=== PATIENT | female | born 1965 | race Caucasian/White ===

== ENCOUNTER 2017-07-23 00:50 | Observation (INO) | payer BC ==
[~2017-07-23] VITALS: Ht 152.4 cm; Wt 63.5 kg
--- NOTE | ~2017-07-23 | CT2 ---
[facility] A Service of [facility] RADIOLOGY TEXT RESULTS PATIENT: MECHELLE STEELE LOCATION: [place] [address] : [birth year] UNIT #: [id number] AGE: [address]: Cristobal Sam MD SEX: F ORDER DR: [id number] [place] [id number] [facility]. [place], [place] [address] [id number] I MR#: [id number] Acc #: [id number] NAME: MECHELLE STEELE : 1965 SEX: F STUDY DATE/TIME: 07/23/2017 4:11 UNIT: [facility] ROOM: [id number] STUDY DESCRIPTION: CT Abd and Pelv W Cont Attending Physician: Cristobal Sam M.D. Ordering Physician: Socrates Grace Aprn Primary Care Physician: No Primary Care Physician MEDICAL IMAGING REPORT This report is preliminary unless electronic signature is present EXAM CT abdomen and pelvis with IV contrast. HISTORY Midabdomen pain and nausea for [address] abdomen and pelvis was performed with IV contrast. This CT exam was performed with one or more of the following radiation dose reduction techniques: automatic exposure control, adjustment of mA and/or kV according to patient size, and iterative reconstruction. CT ABDOMEN There is borderline to mild gallbladder distension and mild gallbladder wall thickening and a small amount of fluid adjacent to the gallbladder. There are several small calcified gallstones, including an approximately 1 cm calcified stone in the gallbladder neck. Findings are concerning for cholecystitis. Fatty infiltration of the liver with focal normal liver adjacent to the gallbladder fossa. Moderately severe multifocal parenchymal scarring in the upper and lower poles of the right kidney and generalized right renal parenchymal atrophy. Borderline to mild splenic enlargement measuring close to 14 cm in maximal dimension. The pancreas and adrenal glands are unremarkable. Mild dilatation of the common bile duct measuring 9 mm. No intrahepatic biliary ductal dilatation. Normal caliber abdominal aorta. No bowel dilatation. No adenopathy or ascites. CT PELVIS Mild diverticulosis in the distal descending colon. The uterus and adnexa are unremarkable. No free fluid. Normal appendix. IMPRESSION [facility] A Service of [facility] RADIOLOGY TEXT RESULTS PATIENT: MECHELLE STEELE LOCATION: [place] [address] : [birth year] UNIT #: [id number] AGE: [address]: Cristobal Sam MD SEX: F ORDER DR: 1. Findings are concerning for acute cholecystitis with mild diffuse gallbladder wall thickening and adjacent small amount of fluid surrounding the gallbladder. There are multiple gallstones including an approximately 1 cm gallstone in the gallbladder neck. 2. Mild extrahepatic biliary ductal dilatation with the common bile duct measuring 9 mm. 3. Fatty infiltration of the liver with focal normal liver adjacent to the gallbladder fossa. 4. Mild splenic enlargement. 5. Moderately extensive multifocal parenchymal scarring in the right kidney and generalized right renal parenchymal atrophy. 6. Normal appendix. Dictated by... Ari Connolly M.D. THIS IS AN ELECTRONICALLY VERIFIED REPORT Ari Connolly M.D. at 07/24/2017 4:18 AM PATT/dmiitri TD: 07/23/2017 09:14 JOB #: [id number] MEDICAL IMAGING REPORT Page 1 of 1 COPY
--- NOTE | ~2017-07-23 | DS ---
Unit #: [id number] #: [id number] Patient: MECHELLE STEELE [id number] [address] [place], [place] [address] [id number] I MR#: [id number] NAME: MECHELLE STEELE ROOM: 461 Age: 51 Sex: F Admission Date: 07/23/2017 : 1965 Discharge Date: 07/25/2017 Attending Physician: Cristobal Sam M.D. Primary Care Physician: No Primary Care Physician DISCHARGE SUMMARY HISTORY AND HOSPITAL COURSE Ms. Steele is a 51-year-old female who had been ill with abdominal pain for several days. Came to the emergency room and was found to have acute cholecystitis. She was started on antibiotics, taken to the operating room where she had severe acute cholecystitis with surrounding phlegmon. She was able to have a laparoscopic cholecystectomy with intraoperative cholangiogram and placement of a drain. Postoperatively, she remained afebrile. Her laboratories normalized and she was able to ambulate independently and be started on a diet and advanced to a regular diet over 48 hours. Patient is doing well. Her drain was able to be removed. Patient is anxious to go home today as today is her mother's so we are going to allow her to be discharged today. We have asked her to continue to maintain hydration, eat as she is comfortable. She will be sent home on Augmentin to continue antibiotics because of the severity of her infection. However, she is afebrile and her white count is back to normal. She is tolerating oral pain medication and her pain seems to be well controlled. The patient and her understood these instructions. They are to call my office and follow up next week for a routine followup. She can undergo diet and activity as tolerated. She may shower and change her bandages as needed and she can use a laxative as needed. Patient understood these instructions, will be discharged home in stable condition. Dictated by... Harpreet Goodman M.D. Casey TD: 07/27/2017 15:32 JOB #: [id number] DISCHARGE SUMMARY Page 1 of 1 X Harpreet Goodman MD X DISCHARGE SUMMARY
--- NOTE | ~2017-07-23 | CR72 ---
[facility] A Service of [facility] & [facility] RADIOLOGY TEXT RESULTS PATIENT: MECHELLE STEELE LOCATION: [place] [address] : [birth year] UNIT #: [id number] AGE: [address]: Cristobal Sam MD SEX: F ORDER DR: [id number] [facility] [address]. [place], [place] [address] [id number] I MR#: [id number] Acc #: [id number] NAME: MECHELLE STEELE : 1965 SEX: F STUDY DATE/TIME: 07/23/2017 3:00 UNIT: [facility] ROOM: 1987[address] STUDY DESCRIPTION: CR Chest Single View Portable Attending Physician: Cristobal Sam M.D. Ordering Physician: Socrates Grace Aprn Primary Care Physician: Primary Care Physician No MEDICAL IMAGING REPORT This report is preliminary unless electronic signature is present COMPARISON Portable chest HISTORY Epigastric pain since yesterday. FINDINGS A single AP portable view of the chest shows both lungs to be clear. The heart is normal in size. The mediastinal contour is normal. No significant bone abnormalities are seen. IMPRESSION Normal portable chest. Dictated by... Ari Connolly M.D. THIS IS AN ELECTRONICALLY VERIFIED REPORT Ari Connolly M.D. at 07/24/2017 4:18 AM PATT/blanka TD: 07/23/2017 09:16 JOB #: [id number] MEDICAL IMAGING REPORT Page 1 of 1 COPY
--- NOTE | ~2017-07-23 | CR73 ---
[facility] A Service of [facility] & [facility] RADIOLOGY TEXT RESULTS PATIENT: MECHELLE STEELE LOCATION: [facility] 46-01 : [birth year] UNIT #: [id number] AGE: [address]: Cristobal Sam MD SEX: F ORDER DR: [id number] [facility] [address] [place], [place] [address] [id number] I MR#: [id number] Acc #: [id number] NAME: EMCHELLE STEELE : 1965 SEX: F STUDY DATE/TIME: 07/23/2017 12:08 UNIT: [facility] ROOM: [facility] STUDY DESCRIPTION: CR Cholangiogram Operative Attending Physician: Cristobal Sam M.D. Ordering Physician: Harpreet Goodman M.D. Primary Care Physician: Primary Care Physician No MEDICAL IMAGING REPORT This report is preliminary unless electronic signature is present EXAM Intraoperative cholangiogram INDICATIONS Laparoscopic cholecystectomy for gallstones and cholecystitis, evaluate for retained stones. FINDINGS The fluoro time was 22 seconds. There are a total of 4 images. The first few images show a filling defect at the end of the common bile duct without flow of contrast around it. The fourth image shows the filling defect has resolved and there is free flow into the duodenum and, therefore, I believe the filling defect represented a bubble. IMPRESSION The study does not confirm any evidence of retained stones or obstruction. Dictated by... Bao Briceño M.D. THIS IS AN ELECTRONICALLY VERIFIED REPORT Bao Briceño M.D. at 07/23/2017 10:08 PM MEERA/tianna TD: 07/23/2017 16:20 JOB #: [id number] MEDICAL IMAGING REPORT Page 1 of 1 COPY
--- NOTE | ~2017-07-23 | CO ---
Unit #: [id number] #: [id number] Patient: MECHELLE STEELE [id number] [address] [address] [id number] I MR#: [id number] NAME: MECHELLE STEELE ROOM: 46 Age: 51 Sex: F Admission Date: 07/23/2017 : 1965 Attending Physician: Cristobal Sam M.D. Primary Care Physician: Primary Care Physician No Consultation Date: 07/23/2017 CONSULTATION REPORT BRIEF HISTORY The patient is a 51-year-old lady with a 2-day history of right upper quadrant epigastric abdominal pain, nausea, and vomiting. No fevers or chills. No history of similar type pain. Described her pain as crampy type pain radiating to her back. Normal bowel movements. No hematemesis. PAST MEDICAL HISTORY None. PAST SURGICAL HISTORY She has had 2 sections. HOME MEDICATIONS None. SOCIAL HISTORY No smoking. No alcohol. FAMILY HISTORY Negative for GI malignancy. REVIEW OF SYSTEMS No cardiopulmonary complaints at this time. Else, 10 systems reviewed and negative. PHYSICAL EXAMINATION GENERAL: She is awake, alert, appropriate, currently uncomfortable. VITAL SIGNS: She is afebrile. HEENT: Unremarkable. NECK: Supple. No JVD. Trachea midline. LUNGS: Clear to auscultation. Bilateral breath sounds symmetric. CARDIOVASCULAR: Regular rate and rhythm. ABDOMEN: Soft. It is tender in the right upper quadrant with point tenderness in the right upper quadrant. There is no rebound tenderness. No hernias. EXTREMITIES: No clubbing, cyanosis, or edema. DIAGNOSTIC STUDIES LABORATORY RESULTS: Show white count of 13. Chemistries are normal. IMAGING STUDIES: CT scan shows pericholecystic fluid with multiple gallstones and thickened gallbladder wall. ASSESSMENT Unit #: [id number] #: [id number] Patient: MECHELLE STEELE Cholecystitis. PLAN Recommend IV fluids and antibiotics and will plan for laparoscopic cholecystectomy. Discussed risks and benefits in detail. We will proceed. Dictated by... Sandra Navarro/liliana TD: 07/23/2017 20:44 JOB #: [id number] CONSULTATION REPORT Page 1 of 1 X Cristobal Sam MD CONSULTATION REPORT
--- NOTE | ~2017-07-23 | EKG ---
PATIENT: MECHELLE STEELE UNIT #: [id number] Ventricular Rate: 57 BPM Atrial Rate: 57 BPM P-R Interval: 128 ms QRS Duration: 70 ms Q-T Interval: 418 ms QTC Calculation(Bezet): 406 ms P [place]: 18 degrees Calculated R [place]: 40 degrees Calculated T [place]: 39 degrees Diagnosis Line: Sinus bradycardia Diagnosis Line: Prolonged QT Diagnosis Line: Abnormal ECG Diagnosis Line: No previous ECGs available Diagnosis Line: Confirmed by ELI MOHR MD ([id number]) on 07/24/2017 Diagnosis Line: 7:28:44 AM INTERPRETING MD: FANI GASPAR
--- NOTE | ~2017-07-23 | OR ---
Unit #: [id number] #: [id number] Patient: MECHELLE STEELE [id number] [address] [place], [place] [address] [id number] Vasquez MR#: [id number] NAME: MECHELLE STEELE ROOM: 461 Date of Procedure: 07/23/2017 Admission Date: 07/23/2017 Surgeon: Harpreet Goodman M.D. : 1965 Attending Physician: Cristobal Sam M.D. OPERATIVE REPORT PREOPERATIVE DIAGNOSIS Acute cholecystitis. POSTOPERATIVE DIAGNOSIS Acute cholecystitis with pericholecystic phlegmon. PROCEDURES PERFORMED Diagnostic laparoscopy, laparoscopic cholecystectomy with intraoperative cholangiogram, placement of Vernon-Carrillo drain. ANESTHESIA General endotracheal anesthesia. ESTIMATED BLOOD LOSS 50 mL. INDICATIONS FOR PROCEDURE A 51-year-old female with right upper quadrant pain for several days, presented to the emergency room this morning. On evaluation, she appeared to have acute cholecystitis. DESCRIPTION OF PROCEDURE The patient was transported from the emergency room to the operating room, and after induction of general endotracheal anesthesia, she was prepped and draped in usual sterile fashion. The patient already had been given Zosyn in the emergency room. A 1 cm infraumbilical incision was made, dissected down through the soft tissue, opened the fascia under direct vision. Stay sutures were placed. I palpated into the peritoneal cavity which was clear, despite having a lower midline incision and a Pedro trocar was placed. Pneumoperitoneum was created and then the laparoscope was introduced into peritoneal cavity. Under direct vision, the epigastric and lateral ports were placed. The gallbladder was distended and tense. It was edematous and there were omental adhesions covering all but the dome of the gallbladder. The gallbladder was so distended it could not be grasped with a grasping device, so an ovarian aspirator was used to aspirate the gallbladder and white bile was returned consistent with hydrops of the gallbladder. Once the gallbladder could be grasped and elevated with blunt and cautery dissection, the gallbladder was cleared of the adhesions and there was some suppurative drainage around the gallbladder. I continued to dissect down until I reached an area where I believe the infundibulum to be and we grasped the gallbladder above this area and retracted laterally. I continued to dissect down Unit #: [id number] #: [id number] Patient: MECHELLE STEELE through the soft tissues, the adhesions, and the phlegmon and dissected out what I believe to be the cystic duct and the right hepatic artery. The duct could be cleared finally and I could visualize the cystic duct, gallbladder, and cystic duct-common duct junction and I could trace out the common bile duct. The right hepatic artery came up high in the triangle of Calot and I could dissect out the cystic artery as it came off the right hepatic artery. Because of the difficulty of the anatomy, even though I felt I could visualize it well. Cholangiogram was performed. The cholangiogram catheter was passed through the anterior abdominal wall through a stab incision. An incision was made in the cystic duct as close as possible to the entrance of the gallbladder. I then swept the cystic duct upwards and some sludge was removed, but no formed stones. The cholangiocatheter was placed in the cystic duct. Clips were placed to secure it, and then it was flushed with saline. Cholangiogram was then performed and it showed that this was in fact the cystic duct and we could visualize the common hepatic duct and intrahepatic radicles. The duodenum filled with dye. The film was read by Radiology and Dr. Bao Briceño agreed with the assessment. In the interim, the cholangiocatheter was removed and three clips were placed in the cystic duct distal to the incision and then one clip was placed in the cystic duct centered to gallbladder, finished dividing the cystic duct. The cystic artery was then further dissected out. It was doubly clipped proximally and distally and divided. I could then raise the lower end of the gallbladder and dissected the gallbladder out of liver bed in the inflamed plane of the gallbladder fossa. Once the gallbladder was dissected free, it was placed in an EndoCatch bag and brought out through the Pedro trocar site. I recreated the pneumoperitoneum. I irrigated with a liter of saline. There was good hemostasis and the clips were well positioned. Through one of the lateral trocar sites, a Vernon-Carrillo drain was placed in the subhepatic space. The drain was secured with 2-0 silk suture. The drain was then placed to suction drainage. The epigastric fascial defect was closed with a neoClose device and the closure was airtight. I then removed the other trocars and laparoscope and closed the Pedro trocar site under direct vision with 0 Vicryl interrupted sutures. Each trocar site was irrigated. There was good hemostasis. Local anesthetic was infiltrated at each trocar site, a total of 30 mL of 0.5% Marcaine with epinephrine. The skin was closed at all sites with 4-0 Monocryl subcuticular closure and Dermabond skin adhesive. Sponges and needle counts were correct x3. The Vernon-Carrillo drain was placed to bulb suction and she was transported to recovery in stable condition. Findings and postoperative expectations were discussed with her . Dictated by... Sandra London/liliana TD: 07/23/2017 16:59 JOB #: [id number] Unit #: [id number] #: [id number] Patient: MECHELLE STEELE OPERATIVE REPORT Page 1 of 1 X Harpreet Goodman MD X PROCEDURE OPERATIVE NOTE
[2017-07-23 03:01] LABS: BASOPHIL# 0.1 X10e3 (0-0.3); BASOPHIL% 0.4 % (0-2.5); EOSINOPHIL# 0.1 X10e3 (0-0.7); EOSINOPHIL% 0.5 % (0.0-7.0); HEMATOCRIT 39.9 % (35.0-45.0); HEMOGLOBIN 13.7 gm/dL (12.0-16.0); LYMPHOCYTE# 1.5 X10e3 (1.0-3.5); LYMPHOCYTE% 11.7 % (17.0-45.0); MEAN CELL VOLUME 89.1 FL (83-96); MEAN CORPUSCULAR HEMOGLOBIN 30.5 PG (28-34); MEAN CORPUSCULAR HGB CONC 34.3 g/dL (30-36); MEAN PLATELET VOLUME 8.2 FL (6.5-11.5); MONOCYTE# 0.8 X10e3 (0-1.0); MONOCYTE% 6.4 % (3.0-12.0); NEUTROPHIL# 10.5 X10e3 (1.5-7.1); PLATELET COUNT 287 X10e3 (140-420); RED BLOOD COUNT 4.48 X10e (3.90-5.30); RED CELL DISTRIBUTION WIDTH 12.6 % (11.0-15.5)
[2017-07-23 03:02] LABS: DIFF IND NO
[2017-07-23 03:11] LABS: POC - CKMB <1.0 ng/mL (0.0-7.9); POC - TROPONIN <0.05 ng/mL (<=0.05)
[2017-07-23 03:27] LABS: ALBUMIN SERUM 4.2 g/dL (3.5-5.0); BILIRUBIN, DIRECT 0.2 mg/dL (0.0-0.2); BILIRUBIN,INDIRECT 0.8 mg/dL (0.0-0.9); CALCIUM SERUM 9.2 mg/dL (8.4-10.2); GLOM FILT RATE Estimated 64.8 mL/min (>60); POTASSIUM 3.2 mmol/L (3.5-5.1); PROTEIN TOTAL SERUM 7.6 g/dL (6.0-8.3)
[2017-07-23] MEDS ORDERED: NO MEDICATIONS (16:05)
[2017-07-24 03:25] LABS: BASOPHIL% 0.2 % (0-2.5); EOSINOPHIL% 0.3 % (0.0-7.0); HEMATOCRIT 32.8 % (35.0-45.0); LYMPHOCYTE# 1.3 X10e3 (1.0-3.5); LYMPHOCYTE% 9.7 % (17.0-45.0); MEAN CELL VOLUME 89.8 FL (83-96); MEAN CORPUSCULAR HGB CONC 34.6 g/dL (30-36); MEAN PLATELET VOLUME 8.4 FL (6.5-11.5); MONOCYTE# 0.9 X10e3 (0-1.0); MONOCYTE% 6.8 % (3.0-12.0); NEUTROPHIL# 10.9 X10e3 (1.5-7.1); PLATELET COUNT 196 X10e3 (140-420); RED BLOOD COUNT 3.66 X10e (3.90-5.30); RED CELL DISTRIBUTION WIDTH 12.8 % (11.0-15.5); WHITE BLOOD COUNT 13.1 X10e3 (4.0-10.5)
[2017-07-24 03:30] LABS: HEMOGLOBIN 11.3 gm/dL (12.0-16.0)
[2017-07-24 03:31] LABS: DIFF IND NO
[2017-07-24 03:47] LABS: ALBUMIN SERUM 2.9 g/dL (3.5-5.0); BILIRUBIN,TOTAL 1.5 mg/dL (0.2-2.0); BUN/CREATININE RATIO 12.22; CREATININE SERUM 0.9 mg/dL (0.6-1.4); GLOM FILT RATE Estimated 73.6 mL/min (>60); MAGNESIUM 1.6 mg/dL (1.6-3.0); PHOSPHOROUS 3.8 mg/dL (2.5-4.6); POTASSIUM 3.7 mmol/L (3.5-5.1); PROTEIN TOTAL SERUM 5.4 g/dL (6.0-8.3)
[2017-07-25 03:11] LABS: HEMATOCRIT 31.4 % (35.0-45.0); HEMOGLOBIN 10.7 gm/dL (12.0-16.0); MEAN CELL VOLUME 90.4 FL (83-96); MEAN CORPUSCULAR HGB CONC 34.2 g/dL (30-36); RED BLOOD COUNT 3.47 X10e (3.90-5.30); WHITE BLOOD COUNT 10.4 X10e3 (4.0-10.5)
[2017-07-25 03:41] LABS: ALBUMIN SERUM 2.8 g/dL (3.5-5.0); BILIRUBIN,TOTAL 1.4 mg/dL (0.2-2.0); BUN/CREATININE RATIO 12.22; CALCIUM SERUM 8.1 mg/dL (8.4-10.2); CREATININE SERUM 0.9 mg/dL (0.6-1.4); GLOM FILT RATE Estimated 73.6 mL/min (>60); POTASSIUM 3.6 mmol/L (3.5-5.1)
[2017-07-25] MEDS ORDERED: AUGMENTIN PO (06:40)
[2017-07-25] MEDS ORDERED: HYDROCODON-ACE1 EAC9 PO (06:43)
== END 2017-07-25 07:15 | disposition home or self-care (01) | DRG 444 ==
LOC: CED 00:50 → CEDOF 06:00 → C4C 06:00 → CEDOF 06:09 → CED 06:09 → C4C 15:10 → CEDOF 15:10 → C4C 07-25 07:15
PROVIDERS: Nurse Practitioner Family; Specialist
DX: K81.0 Acute cholecystitis (principal); K65.8 Other peritonitis; Z79.891 Long term (current) use of opiate analgesic
CPT/HCPCS: 36415; 71010; 74177; 74300; 80048; 80053; 80076; 82150; 82553; 83690; 83735; 84100; 84484; 84703; 85025; 85027; 88304; 93005; 94760; 96361; 96365; 96372; 96374; 96375; 96376; 99285; G0378; J0131; J0330; J1170; J1650; J1885; J2270; J2405; J2543; J2710; J2765; J3010; Q9967